=== PATIENT | female | born 1960 | race Caucasian/White ===

== ENCOUNTER 2024-02-22 17:35 | Emergency (ER) | payer OTHER ==
[~2024-02-22] VITALS: Ht 162.6 cm; Wt 62.3 kg
[2024-02-22 18:49] VITALS: BP 141/92; PULSE 88; RESP 14; O2SAT 92
[2024-02-22 19:40] VITALS: TEMP 98.6
== END 2024-02-22 19:45 | disposition home or self-care (01) ==
LOC: ER 17:36
DX: M76.891 Other specified enthesopathies of right lower limb, excluding foot (principal)
CPT/HCPCS: 99281